=== PATIENT | female | born 1995 | race Caucasian/White ===

== ENCOUNTER → 2018-11-08 21:01 | Observation (INO) ==
[2018-11-08 19:22] LABS: Bilirubin,Urine Negative (Negative); Blood,Urine Negative (Negative); Clarity,Urine Clear (Clear); Color,Urine Yellow (Yellow); Glucose,Urine (UA) Normal (Normal); Ketones,Urine Negative (Negative); Leukocyte Esterase,Urine Negative (Negative); Nitrite,Urine Negative (Negative); Protein,Urine Negative (Neg-Trace); Specific Gravity,Urine 1.015 (1.010-1.025); Urobilinogen,Urine Normal (Normal)
[2018-11-08 20:43] LABS: Candida DNA Not Detected (Not Detect); Gardnerella DNA DETECTED (Not Detect); Trichomonas DNA Not Detected (Not Detect)
--- NOTE | 2018-11-08 20:50 | Discharge Summary ---
Date of Encounter: 11/08/18 Time of Encounter: 20:48 - Discharge Diagnosis (1) 22 weeks gestation of Priority: Primary Status: Acute Comments: Follow up with seed production field supervisor on Wednesday Call office tomorrow to confirm appointment Discharge home (2) Bacterial vaginosis Priority: Secondary Status: Acute Comments: Metronidazole 500mg BID x 7 days - Discharge Medications Prescriptions: New metroNIDAZOLE [Metronidazole] 500 mg PO BID #14 tablet Continue Pnv No.95/Ferrous Fum/Folic AC [ Caplet] 1 each PO DAILY Home Medications: Pnv No.95/Ferrous Fum/Folic AC [ Caplet] 1 each PO DAILY 11/08/18 [History] metroNIDAZOLE [Metronidazole] 500 mg PO BID #14 tablet 11/08/18 [Rx] Allergies/Adverse Reactions: Allergy/AdvReac Type Severity Reaction Status Date / Time No Known Allergies Allergy Verified 05/29/15 10:42 Data Procedures and tests throughout hospitalization: Laboratory Tests 11/08/18 11/08/18 11/08/18 19:00 19:00 19:34 Urine Color Yellow Urine Clarity Clear Urine pH 6.0 Ur Specific [place] 1.015 Urine Protein Negative Urine Glucose (UA) Normal Urine Ketones Negative Urine Blood Negative Urine Nitrite Negative Urine Bilirubin Negative Urine Urobilinogen Normal Ur Leukocyte Esterase Negative Ur Culture Indicated? NO Ur Drug Screen Interp See Below Jael species DNA Not Detected Gardnerella DNA Probe DETECTED A Trichomonas DNA Probe Not Detected Labs on day of discharge: Labs from last 24 hours 11/08/18 11/08/18 11/08/18 19:34 19:00 19:00 Urine Color Yellow Urine Clarity Clear Urine pH 6.0 Ur Specific [place] 1.015 Urine Protein Negative Urine Glucose (UA) Normal Urine Ketones Negative Urine Blood Negative Urine Nitrite Negative Urine Bilirubin Negative Urine Urobilinogen Normal Ur Leukocyte Esterase Negative Ur Culture Indicated? 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 Mayo is a 22-year-old who presents at 22 weeks gestation with c/o cramping and vaginal discharge. She endorses good fm and denies vb. FHR 150's with moderate variability. Vaginosis panel +for BV. Pt given prescription for flaygl and sent home with follow up instructions to see Ramona Meza CNM on Wednesday. Discharged in stable condition. Time spent discussing smoking cessation with patient: 3 to 10 minutes Time Attestation: Total time spent providing and/or coordinating discharge services: Time Spent: Less than 30 minutes Exam - Constitutional General appearance IM: A&O X 3 - Respiratory Respiratory exam: Present: CTAB - Cardiovascular Cardiovascular exam IM: Present: RRR, +S1, +S2 - GI/Abdominal GI/Abdominal exam IM: normal bowel sounds, no peritoneal signs - Rectal Rectal exam: deferred - Uterine Tone: Firm - Extremities Exam Extremities exam IM: Present: normal capillary refill, normal inspection, radial pulses palpable and symmetrical - Neurological Exam Neurological exam: alert, CN II-XII intact, normal gait, oriented X3, reflexes normal, no focal deficits, strengths equal and symetr throughout - VTE Reasons for not Prescribing Prophylaxis: Treatment not Indicated - Low risk for VTE
[2018-11-08 21:31] LABS: Amphetamine Screen,Urine Negative ng/mL (Cutoff=1000); Barbiturate Screen,Urine Negative ng/mL (Cutoff=200); Benzodiazepines Screen,Urine Negative ng/mL (Cutoff=200); Cannabinoid Screen,Urine Negative ng/mL (Cutoff = 50); Cocaine Screen,Urine Negative ng/mL (Cutoff= 300); Opiate Screen,Urine Negative ng/mL (Cutoff=300); Phencyclidine Screen,Urine Negative ng/mL (Cutoff=25)
== END | disposition home or self-care (01) ==
LOC: 1NENULAB
PROVIDERS: ADMIT Advanced Practice Midwife; ATTEND Advanced Practice Midwife

== ENCOUNTER 2019-03-17 08:15 | Inpatient (IN) ==
[2019-03-17] MEDS ORDERED: Metoclopramide 10 MG/2 ML VIAL IVP PRN (09:16)
[2019-03-17] MEDS ORDERED: *HR* Nalbuphine 10 MG/ML AMPUL IVP PRN (09:16)
[2019-03-17] MEDS ORDERED: Naloxone 0.4 MG/ML INJ IVP PRN (09:16)
[2019-03-17] MEDS ORDERED: Famotidine 20 MG/2 ML VIAL IVP PRN (09:16)
[2019-03-17] MEDS ORDERED: Ringers Solution, Lactated 1,000 ML IVC SCH (09:30)
[2019-03-17] MEDS ORDERED: miSOPROStol 25 MCG TABLET PO ONE (09:30)
[2019-03-17 09:37] LABS: Basophils % 0.3 %; Eosinophils # 0.1 K/mcL (0.0-0.6); Eosinophils % 1.6 %; Immature Granulocytes % 0.6 % (0-4); Lymphocytes # 1.6 K/mcL (0.6-4.6); Lymphocytes % 17.6 %; Mean Corpuscular HGB Conc 32.4 g/dL (31.6-35.5); Mean Corpuscular Hemoglobin 28.6 pg (28.0-33.3); Mean Corpuscular Volume 88.3 fL (83.0-100.0); Mean Platelet Volume 9.9 fL (9.4-12.4); Monocytes # 0.5 K/mcL (0.0-1.3); Monocytes % 5.7 %; Neutrophils # 6.6 K/mcL (1.6-8.9); Platelet Count 244 K/mcL (140-400); Red Blood Count 4.19 M/mcL (3.82-4.97); Red Cell Distribution Width 13.3 % (11.5-14.5); Segmented Neutrophils % 74.2 %; White Blood Count 8.8 K/mcL (4.3-11.1)
[2019-03-17 09:41] LABS: Amphetamine Screen,Urine Negative ng/mL (Cutoff=1000); Barbiturate Screen,Urine Negative ng/mL (Cutoff=200)
[2019-03-17 09:43] LABS: Benzodiazepines Screen,Urine Negative ng/mL (Cutoff=300); Cannabinoid Screen,Urine Negative ng/mL (Cutoff = 50); Cocaine Screen,Urine Negative ng/mL (Cutoff= 300); Opiate Screen,Urine Negative ng/mL (Cutoff=300); Phencyclidine Screen,Urine Negative ng/mL (Cutoff=25)
[2019-03-17] MEDS ORDERED: Acetaminophen 325 MG TABLET PO ONE (10:27)
[2019-03-17] MEDS ORDERED: Epidural Premix (fent/bupiv) 110 ML EP SCH (12:15)
--- NOTE | 2019-03-17 12:21 | Anesthesia Evaluation PreOp ---
Date of Encounter: 03/17/19 Time of Encounter: 12:16 - Past History Planned Operation: [place] Cardiac History: Denies any Significant Hx Pulmonary History: Denies Any Significant HX ADVERTISING CONSULTANT History: Denies Any Significant HX Other Medical History: Other (Scoliosis) Anesthesia History: No Prior Anesthetic Complications (No prior anesthetics) : Yes (40.3) Alcohol Use: none Drug use: none Medications and Allergies Pnv No.95/Ferrous Fum/Folic AC [ Caplet] 1 each PO DAILY 11/08/18 [History] metroNIDAZOLE [Metronidazole] 500 mg PO BID #14 tablet 11/08/18 [Rx] Allergy/AdvReac Type Severity Reaction Status Date / Time No Known Allergies Allergy Verified 05/29/15 10:42 - Meds/Allergy Pre-op Review Medications Reviewed: Yes Allergies Reviewed: Yes Beta Blockers on Current Med List: No Anesthesia Results - Labs 03/17/19 08:39 Anesthesia Exam O2 Sat Height 1.52 m Weight 66 kg NPO (# of Hours): 4 Pain Scale: 5 Pain Scale Used: Numeric (1 - 10) - HEENT Pupil (Motor): Pupils equal Mallampati: II Teeth: Normal Oral Opening: Greater than 3 - ADVERTISING CONSULTANT LOC: Oriented ADVERTISING CONSULTANT Motor: Normal RUE, Normal LUE, Normal RLE, Normal LLE, Normal Face ADVERTISING CONSULTANT Sensory: Normal: RUE, LUE, RLE, LLE, Face - Cardiac Rhythm: Regular Murmur: None JVD: No Carotid Bruit: No - Pulmonary Breath Sounds: bilateral Clear Respiratory Effort: Symmetrical Anesthesia Assess/Plan ASA Score: 2 Level of consciousness: Cooperative, Oriented Anesthetic Plan: General, Epidural Autologous Blood: Yes Monitoring Plan: Standard Monitors Recovery Plan: PACU
--- NOTE | 2019-03-17 13:21 | OB/GYN History & Physical ---
Date of Encounter: 03/17/19 Time of Encounter: 13:13 Assessment and Plan (1) 40 weeks gestation of Current visit: Yes Status: Acute (2) Elective induction of labor planned Current visit: Yes Status: Acute Admitted to labor and delivery Cytotec by mouth Cervical Parada was placed without incident Nubain and epidural as desired Frequent repositioning May use able ambulatory monitor Anticipate Dr. Martínez made aware of induction of labor plan of care (3) Anxiety during in third trimester, antepartum Current visit: Yes Status: Acute History of Present Illness Chief complaint: Induction of labor HPI: Ms. Mckenzie is a 23 year old female 40+3 weeks gestation presents to triage for induction of labor secondary to post dates . Patient reports good movement, denies vaginal bleeding or leaking of fluid. care with nurse midwives after transfer care. course, complicated by anxiety was prescribed Klonopin, taking her prescription. Labs: O-, rubella immune, GBS negative, all other serologies negative Past Med Surg Social Fam HX - Past Medical History Medical history: no medical history Psychiatric history: anxiety - Past Surgical History Surgical History: other Additional surgical history: colposcopy, surgery on l. arm - Social History Smoking Status: Former smoker Smokeless Tobacco Status: No Alcohol use: none Drug use: none - Family History Mother History Unknown: Yes Living Status: Still Living Hx Family Cardiac Disorders: No Hx Family Respiratory Disorders: No Hx Family Cancer: No Hx Family GI Disorders: No Hx Family Genitourinary Disorders: No Hx Family Endocrine Disorder: No Hx Family Musculoskeletal Disorders: No Hx Family Neuromuscular Disorders: No Hx Family Neurologic Disorders: No Hx Family HEENT Disorders: No Hx Family Autoimmune Disorders: No Hx Family Reproductive Disorders: No Hx Family Psychosocial Disorders: No Hx Family Medical Disorders: No Obstetrical History - Pregnancies : 2 Para: 0 Term: 0 : 0 Ab's: 1 Livin Medications and Allergies Pnv No.95/Ferrous Fum/Folic AC [ Caplet] 1 each PO DAILY 11/08/18 [History] metroNIDAZOLE [Metronidazole] 500 mg PO BID #14 tablet 11/08/18 [Rx] Allergy/AdvReac Type Severity Reaction Status Date / Time No Known Allergies Allergy Verified 05/29/15 10:42 Exam - Constitutional Constitutional: well developed, well nourished, no acute distress, average body habitus - Neck Neck exam: full ROM - Lungs Respiratory exam: CTAB - Cardiovascular Cardiovascular exam: RRR - Abdomen Abdomen: Present: gravid, non tender - Extremities Extremities exam: normal capillary refill, normal inspection Results Result Diagrams: 03/17/19 08:39 All other labs normal. - VTE Reasons for not Prescribing Prophylaxis: Treatment not Indicated - Low risk for VTE
[2019-03-17] MEDS ORDERED: Oxytocin 20 units/ LR 1000 mL 20 UNIT/1,000 ML BAG IVC SCH (15:00)
--- NOTE | 2019-03-17 15:48 | OB Labor Progress Note ---
Date of Encounter: 03/17/19 Time of Encounter: 15:46 Labor Progress Note - Subjective Subjective: pt using nuabin for pain management - Cervix Cervix: cervical quintana remains in place - Heart Tones Heart Tones: 115/moderate/+accels/-decels - [place]: 2-5 - Plan Physician notified: No Plan: Start pitocin per policy epidural as desired encourage frequent positioning Anticipate
--- NOTE | 2019-03-17 17:11 | Anesthesia Procedures ---
Date of Encounter: 03/17/19 Time of Encounter: 17:09 Procedures: Anesthesia - Epidural/Spinal Patient ID/Chart reviewed: Yes Patient examined: Yes OB Eval: Gestational age: 40.3 OB Eval: : 2 OB Eval: Hx Para: 0 OB Eval: Dilated at (cm): 4 OB Eval: Contractions: Non-stressed pattern Consent Obtained: Yes Supplemental Oxygen: None/Room Air Site Prep: Aseptic Technique, Sterile prep and drape, Povidone-Iodine 1% Patient position: upright Local Anesthetic: Lidocaine 1% Amount of Local Anesthetic used: 3 Touhy Needle Gauge: 18 Touhy Needle Depth (cm): 7 Catheter Depth at Skin (cm): 19 Test Dose (1.5% Lido + Epi): Volume given (mls): 5 Test Dose Result: Negative Loading Dose: Other: 10mls of epidural pharm bag premix Loading Dose Administered: Thru Catheter Infusion Med: 0.125% Bupivacaine w/ 2 mcg/ml Fentanyl Infusion Rate (mls/hr): 12 ([id number]) Catheter Secured in Place: Tegaderm, Tape Interspace Used: L4-L5 Loss of Resistance (JOSE): Yes Blood: No CSF: No Paresthesia: Yes (transient with catheter insertion) Spinal Needle Gauge: 25 (Sprotte for dural puncture) Procedure: pt tolerated procedure well. no complications. vss. fhr stable.
--- NOTE | 2019-03-17 18:37 | OB Labor Progress Note ---
Date of Encounter: 03/17/19 Time of Encounter: 18:35 Labor Progress Note - Subjective Subjective: Comfortable with epidural - Cervix Cervix: 4/75/-2 - Heart Tones Heart Tones: 130/moderate/+accels/ variable - [place]: 1-4 - Interventions Interventions: AROM for large amount of clear fluid - Plan Plan: Pitocin per policy frequent repositioning anticipate
[2019-03-17] MEDS ORDERED: *HR* FentaNYL (PF) 100 MCG/2 ML VIAL ONE (22:00)
[2019-03-17] MEDS ORDERED: Ropivacaine/PF 0.2% 20 ML VIAL ONE (22:01)
--- NOTE | 2019-03-17 22:09 | Anesthesia Progress Note ---
Date of Encounter: 03/17/19 Time of Encounter: 22:07 Anesthesia Note - Note Note: 03/17/19 22:07 called for increased pain during contractions 06/29. bolus given of 7ml of 0.2% ropivacaine with 100mcg fentanyl after negative aspiration. vss. fhr stable. gtt increased to 16ml/hr.
[2019-03-17] MEDS ORDERED: Ondansetron 4 MG/2 ML VIAL ONE (22:57)
--- NOTE | 2019-03-17 23:36 | OB Labor Progress Note ---
Date of Encounter: 03/18/19 Time of Encounter: 23:33 Labor Progress Note - Subjective Subjective: Pt feeling contractions despite epidural - Vital Signs Vital Signs: 133/79 99.1 oral - Cervix Cervix: 5/80/-2 - Heart Tones Heart Tones: 155/moderate/+accels/variables - [place]: 1-3 - Plan Plan: Give 1mg klonopin continue pitocin per policy IV fluid bolus anticipate discussed klonopin with Dr. Lopez
[2019-03-17] MEDS ORDERED: clonazePAM 1 MG TABLET PO PRN (23:40)
--- NOTE | 2019-03-18 01:18 | OB Labor Progress Note ---
Date of Encounter: 03/18/19 Time of Encounter: 01:14 Labor Progress Note - Subjective Subjective: currently comfortable with epidural after long period of poor pain management and severe anxiety and panic attacks - Cervix Cervix: 5-6/80/-2 - Heart Tones Heart Tones: 155/moderate/+accels/variable and early - [place]: 1-3 - Interventions Interventions: Quintana removed - Plan Plan: Continue pitocin per policy St. cath at least every 2 hours do not replace quintana frequent repostionong. anticipate
[2019-03-18] MEDS ORDERED: Acetaminophen 325 MG TABLET PO ONE (01:57)
[2019-03-18] MEDS ORDERED: Ampicillin 2 GM in 0.9 % Sodium Chloride Mini Bag 100 ML IVPB SCH ×2 (02:00→14:00)
--- NOTE | 2019-03-18 02:03 | OB Labor Progress Note ---
Date of Encounter: 03/18/19 Time of Encounter: 02:01 Labor Progress Note - Subjective Subjective: Pt remains comfortable with epidural - Vital Signs Vital Signs: 109/65 94 101.0F - Cervix Cervix: 7/80/-2 per RN - Heart Tones Heart Tones: 160/moderate/-accels/variable, early and 1 prolonged - [place]: 1-4 - Plan Plan: Continue pitocin as per policy Start ampicillin every 6 hours and gentamicin q24 Frequent repositioning Straight catheter every 2 hours Anticipate
[2019-03-18] MEDS ORDERED: Gentamicin 270 MG in 0.9 % Sodium Chloride 100 ML IVPB SCH (02:30)
[2019-03-18] MEDS ORDERED: Ibuprofen 600 MG TABLET PO PRN ×2 (06:23→06:29)
[2019-03-18] MEDS ORDERED: Rho Immune Globulin 1,500 UNIT SYRINGE IM PRN ×2 (06:23→08:43)
[2019-03-18] MEDS ORDERED: Acetaminophen 325 MG TABLET PO PRN ×2 (06:23→08:43)
[2019-03-18] MEDS ORDERED: Benzocaine/Menthol 56 GM AEROSOL SPRAY TP PRN ×2 (06:23→08:43)
[2019-03-18] MEDS ORDERED: Lanolin 7 G OINT...G. TP PRN ×2 (06:23→08:43)
--- NOTE | 2019-03-18 06:23 | OB/GYN Procedure Note ---
Delivery - Delivery Date: 03/18/19 Provider: Jaimie Sandoval Intrapartum events: febrile- temp >100.3 Delivery induction: AROM, oxytocin, quintana, misoprostol Delivery monitor: external FHT, external uterine Anesthesia: epidural Quantitated Blood Loss: 150 - Infant (s) Infant A Infant Delivery Date: 03/18/19 Infant Delivery Time: 05:50 Presentation: vertex Position: OA Route of delivery: Gender: Female Viability: Viable at 1 minute: 8 at 5 mins: 9 Shoulder Dystocia: not encountered Specimens collected: cord blood Placenta: spontaneous - Repair Episiotomy: none Laceration Description: Labial - Complications Delivery complications: none Delivery comments: Induction of labor with Cytotec, cervical Quintana and Pitocin. Progressed to complete. Maternal bearing down efforts to of liveborn female. Vertex delivered OA, body and shoulders easily followed. No nuchal cord or shoulder dystocia encountered. Vigorous infant placed on maternal abdomen for drying and stimulation. Apgars 8/9. Placenta delivered spontaneously ([place]) complete and intact upon inspection. Fundus massaged until firm and Pitocin started per policy. Left labial laceration repaired with 4-0 Monocryl. EBL 150. Mother and left bonding skin to skin - Disposition Mom disposition: stable in LDR disposition: stable in LDR
[2019-03-18] MEDS ORDERED: Oxytocin 20 units/ LR 1000 mL 20 UNIT/1,000 ML BAG IVC SCH ×2 (06:30→08:43)
[2019-03-18] MEDS ORDERED: clonazePAM 1 MG TABLET PO PRN (08:43)
[2019-03-18] MEDS ORDERED: Prenatal Vit/FA 1 EACH TABLET PO SCH ×2 (09:00)
[2019-03-18] MEDS ORDERED: Etonogestrel 68 MG IMPLANT IL ONE (09:57)
[2019-03-18] MEDS ORDERED: Lidocaine -MPF 1% 5 ML AMPUL ID ONE (09:57)
[2019-03-18] MEDS: Ampicillin 2 GM in 0.9 % Sodium Chloride Mini Bag 100 ML IVPB SCH ×2 (10:22→16:11)
[2019-03-18] MEDS: Ibuprofen 600 MG TABLET PO PRN ×2 (12:48→21:09)
[2019-03-19] MEDS: Ibuprofen 600 MG TABLET PO PRN ×2 (03:44→12:47)
[2019-03-19 08:37] VITALS: BP 118/76
--- NOTE | 2019-03-19 09:38 | Discharge Summary ---
Date of Encounter: 03/19/19 Time of Encounter: 09:31 - Discharge Diagnosis (1) Anxiety during in third trimester, antepartum Priority: Secondary Status: Acute (2) Vaginal delivery Priority: Primary Status: Acute Comments: Stable, meeting all pp milestones, pain well managed, desires discharge to guest - Discharge Medications Prescriptions: New Docusate [Colace] 100 mg PO BID #60 capsule Benzocaine/Menthol [place] [Dermoplast [place]] 1 appl TP QID PRN aerosol PRN Reason: See Comments clonazePAM [Klonopin] 1 mg PO BID PRN 30 Days #30 tablet PRN Reason: Anxiety Lanolin [Lansinoh] 1 appl TP QID PRN oint...g. PRN Reason: Ibuprofen [Motrin] 600 mg PO Q6HR PRN #60 tablet PRN Reason: Cramping Calcium Carbonate [Tums] 1,000 mg PO Q4HR PRN tab.chew PRN Reason: Heartburn Acetaminophen [Tylenol] 650 mg PO Q6HR PRN tablet PRN Reason: Mild Pain Continued Pnv No.95/Ferrous Fum/Folic AC [ Caplet] 1 each PO DAILY Discontinued metroNIDAZOLE [Metronidazole] 500 mg PO BID #14 tablet Home Medications: Pnv No.95/Ferrous Fum/Folic AC [ Caplet] 1 each PO DAILY 11/08/18 [History] Acetaminophen [Tylenol] 650 mg PO Q6HR PRN tablet 03/19/19 [Rx] Benzocaine/Menthol [place] [Dermoplast [place]] 1 appl TP QID PRN aerosol 03/19/19 [Rx] Calcium Carbonate [Tums] 1,000 mg PO Q4HR PRN tab.chew 03/19/19 [Rx] Docusate [Colace] 100 mg PO BID #60 capsule 03/19/19 [Rx] Ibuprofen [Motrin] 600 mg PO Q6HR PRN #60 tablet 03/19/19 [Rx] Lanolin [Lansinoh] 1 appl TP QID PRN oint...g. 03/19/19 [Rx] clonazePAM [Klonopin] 1 mg PO BID PRN 30 Days #30 tablet 03/19/19 [Rx] Allergies/Adverse Reactions: Allergy/AdvReac Type Severity Reaction Status Date / Time No Known Allergies Allergy Verified 05/29/15 10:42 Data Procedures and tests throughout hospitalization: Laboratory Tests 03/17/19 03/17/19 03/18/19 08:39 08:39 06:25 WBC 8.8 RBC 4.19 Hgb 12.0 Hct 37.0 MCV 88.3 MCH 28.6 MCHC 32.4 RDW 13.3 Plt Count 244 MPV 9.9 Immature Gran % 0.6 Seg Neutrophils % 74.2 Lymphocytes % 17.6 Monocytes % 5.7 Eosinophils % 1.6 Basophils % 0.3 Neutrophils # 6.6 Lymphocytes # 1.6 Monocytes # 0.5 Eosinophils # 0.1 Basophils # 0.0 Urine Opiates Screen Negative Ur Buprenorphine Scrn Negative Ur Barbiturates Screen Negative Ur Phencyclidine Scrn Negative Ur Amphetamines Screen Negative U Benzodiazepines Scrn Negative Urine Cocaine Screen Negative U Marijuana (THC) Screen Negative Ur Drug Screen Interp See Below Baby's Blood Type O RH NEGATIVE Mother's Blood Type O RH NEGATIVE Rhogam Indicated NO Labs on day of discharge: Labs from last 24 hours 03/18/19 06:25 Baby's Blood Type O RH NEGATIVE Mother's Blood Type O RH NEGATIVE Rhogam Indicated NO Date of admission: 03/17/19 08:15 Primary care physician: Mike Naidu Jr, MD Consults: 03/18/19 06:23 Consult to Environmental Safety Specialist [CONS] Routine Comment: Vaginal delivery, consult needed Discharging clinician: Jaimie Sandoval Anticipated date of discharge: 03/19/19 - Patient Status Disposition: Home, Self-Care Condition: Good Functional capacity at discharge: independent ambulation Overall status at discharge: patient is progressing back to baseline - Discharge Instructions Follow Up With: Mike Naidu Jr, MD [Primary Care Provider] - Jaimie Sandoval CNM [Advanced Practice Nurse] - - Diet and Activity Activity: resume usual activities as tolerated Diet: regular diet Hospital Course Reason for admission: induction of labor, IUP at term Delivery: Episiotomy: none Laceration: other Other procedures: none complications: none Discharge diagnosis: IUP at term delivered [place] baby: female Hospital course: Delivery - Delivery Date: 03/18/19 Provider: Jaimie Sandoval Intrapartum events: febrile- temp >100.3 Delivery induction: AROM, oxytocin, quintana, misoprostol Delivery monitor: external FHT, external uterine Anesthesia: epidural Quantitated Blood Loss: 150 - Infant (s) A Delivery Date: 03/18/19 Infant Delivery Time: 05:50 Presentation: vertex Position: OA Route of delivery: Gender: Female Viability: Viable at 1 minute: 8 at 5 mins: 9 Shoulder Dystocia: not encountered Specimens collected: cord blood Placenta: spontaneous - Repair Episiotomy: none Laceration Description: Labial - Complications Delivery complications: none Delivery comments: Induction of labor with Cytotec, cervical Quintana and Pitocin. Progressed to complete. Maternal bearing down efforts to of liveborn female. Vertex delivered OA, body and shoulders easily followed. No nuchal cord or shoulder dystocia encountered. Vigorous placed on maternal abdomen for drying and stimulation. Apgars 8/9. Placenta delivered spontaneously (Vi) complete and intact upon inspection. Fundus massaged until firm and Pitocin started per policy. Left labial laceration repaired with 4-0 Monocryl. EBL 150. Mother and infant left bonding skin to skin - Disposition Mom disposition: stable in PP and appropriate for dischARGE. oarrs reviewed Time Attestation: Total time spent providing and/or coordinating discharge services: Time Spent: Less than 30 minutes Exam - Constitutional Vitals: Temp Pulse Resp BP Pulse Ox 98.6 F 86 16 118/76 98 03/19/19 08:37 03/19/19 08:37 03/19/19 08:37 03/19/19 08:37 03/19/19 08:37 General appearance IM: A&O X 3 - Respiratory Respiratory exam: Present: CTAB - Cardiovascular Cardiovascular exam IM: Present: RRR - GI/Abdominal GI/Abdominal exam IM: soft - Uterine Tone: Firm Uterus Position: 1 Finger Above Umbilicus - Extremities Exam Extremities exam IM: Present: normal capillary refill, normal inspection - Neurological Exam Neurological exam: normal gait, oriented X3 - Psychiatric Additional comments: Pt states good mood, but still having anxiety and panic feelings.
== END 2019-03-19 14:23 | disposition home or self-care (01) | DRG 560 ==
LOC: 1NENULAB 08:15 → 1NENUOBS 03-18 08:27
PROVIDERS: ADMIT Advanced Practice Midwife; ATTEND Advanced Practice Midwife

== ENCOUNTER → 2022-05-31 13:50 | Observation (INO) ==
[2022-05-31 13:10] LABS: Bilirubin,Urine Negative (Negative); Blood,Urine Negative (Negative); Clarity,Urine Clear (Clear); Color,Urine Light-Yellow (Yellow); Glucose,Urine (UA) Normal (Normal); Ketones,Urine Negative (Negative); Leukocyte Esterase,Urine Negative (Negative); Nitrite,Urine Negative (Negative); Protein,Urine Negative (Neg-Trace); Urobilinogen,Urine Normal (Normal)
== END | disposition home or self-care (01) ==
LOC: 1NENULAB
PROVIDERS: ADMIT Advanced Practice Midwife; ATTEND Advanced Practice Midwife

== ENCOUNTER → 2022-06-09 15:30 | Observation (INO) ==
[2022-06-09 13:25] LABS: Bacteria,Urine Few per hpf (None-Few); Bilirubin,Urine Negative (Negative); Blood,Urine Negative (Negative); Clarity,Urine Turbid (Clear); Color,Urine Yellow (Yellow); Glucose,Urine (UA) Normal (Normal); Ketones,Urine >150 mg/dL (Negative); Leukocyte Esterase,Urine Small (Negative); Mucus,Urine Few per lpf (None-Few); Nitrite,Urine Negative (Negative); PH,Urine 5.5 pH Units (5.0-8.0); Protein,Urine 50 mg/dL (Neg-Trace); RBC,Urine 0-3 per hpf (0-3); Specific Gravity,Urine 1.028 (1.010-1.025); Squamous Epithelial Cell,Urine Many per hpf (None-Few); Urobilinogen,Urine Normal (Normal)
== END | disposition home or self-care (01) ==
LOC: 1NENULAB
PROVIDERS: ADMIT Registered Nurse; ATTEND Registered Nurse

== ENCOUNTER 2022-07-10 12:19 | Inpatient (IN) ==
[~2022-07-10 12:19] MED LIST: *HR* Nalbuphine 10 MG/ML AMPUL IV PRN; Azithromycin 500 MG in 0.9 % Sodium Chloride 250 ML IVPB PRN; Famotidine 20 MG/2 ML VIAL IVP PRN; Metoclopramide 10 MG/2 ML VIAL IVP PRN; Naloxone 0.4 MG/ML INJ IVP PRN; Ondansetron 4 MG/2 ML VIAL IVP PRN
[2022-07-10] MEDS ORDERED: Ringers Solution, Lactated 1,000 ML IVC SCH (12:30)
[2022-07-10 13:09] LABS: Basophils % 0.4 %; Eosinophils # 0.1 K/mcL (0.0-0.6); Eosinophils % 1.5 %; Hematocrit 30.5 % (35.3-44.9); Hemoglobin 9.7 g/dL (11.5-15.4); Immature Granulocytes % 0.3 % (0-4); Lymphocytes # 1.3 K/mcL (0.6-4.6); Lymphocytes % 19.6 %; Mean Corpuscular HGB Conc 31.8 g/dL (31.6-35.5); Mean Corpuscular Hemoglobin 23.8 pg (28.0-33.3); Mean Corpuscular Volume 74.9 fL (83.0-100.0); Mean Platelet Volume 10.4 fL (9.4-12.4); Monocytes # 0.6 K/mcL (0.0-1.3); Monocytes % 8.2 %; Neutrophils # 4.7 K/mcL (1.6-8.9); Platelet Count 233 K/mcL (140-400); Red Blood Count 4.07 M/mcL (3.82-4.97); Red Cell Distribution Width 14.3 % (11.5-14.5); White Blood Count 6.7 K/mcL (4.3-11.1)
[2022-07-10 13:18] LABS: Amphetamine Screen,Urine Negative ng/mL (Cutoff=1000); Barbiturate Screen,Urine Negative ng/mL (Cutoff=200); Benzodiazepines Screen,Urine Negative ng/mL (Cutoff=200); Cannabinoid Screen,Urine Positive ng/mL (Cutoff = 50); Cocaine Screen,Urine Negative ng/mL (Cutoff= 300); Opiate Screen,Urine Negative ng/mL (Cutoff=300); Phencyclidine Screen,Urine Negative ng/mL (Cutoff=25)
[2022-07-10] MEDS ORDERED: miSOPROStoL 25 MCG TABLET PO ONE (13:57)
[2022-07-10] MEDS ORDERED: EPHEDrine sulfate 50 MG/10 ML VIAL IVP PRN (14:05)
[2022-07-10] MEDS ORDERED: Naloxone 0.4 MG/ML INJ IVP PRN (14:05)
[2022-07-10] MEDS ORDERED: Bupivacaine-MPF 0.25% 10 ML VIAL EP ONE (14:05)
[2022-07-10] MEDS ORDERED: Ondansetron 4 MG/2 ML VIAL IVP PRN (14:05)
[2022-07-10] MEDS ORDERED: Ropivacaine/PF 0.2% 20 ML VIAL EP ONE (14:05)
[2022-07-10] MEDS ORDERED: Epidural Premix (fent/bupiv) 110 ML EP SCH (14:15)
[2022-07-10] MEDS ORDERED: Oxytocin 30 UNIT/503 ML BAG IVC SCH (17:45)
[2022-07-10] MEDS ORDERED: Ropivacaine/PF 0.2% 20 ML VIAL ONE (20:17)
[2022-07-11] MEDS ORDERED: clonazePAM 1 MG TABLET PO ONE (01:22)
[2022-07-11] MEDS ORDERED: Oxytocin 30 UNIT/503 ML BAG IVC SCH (05:58)
[2022-07-11] MEDS ORDERED: Rho Immune Globulin 1,500 UNIT SYRINGE IM PRN (05:58)
[2022-07-11] MEDS ORDERED: Benzocaine/Menthol 56 GM AEROSOL SPRAY TP PRN (05:58)
[2022-07-11] MEDS ORDERED: Lanolin 7 G OINT...G. TP PRN (05:58)
[2022-07-11] MEDS ORDERED: Ondansetron ODT 4 MG TAB.RAPDIS SL PRN (06:00)
[2022-07-11] MEDS: Ibuprofen 600 MG TABLET PO SCH ×2 (06:21→16:58)
[2022-07-11] MEDS: *HR* Buprenorphine HCl 8 MG TAB.SUBL SL SCH (08:13)
[2022-07-11] MEDS: Prenatal Vit/FA 1 EACH TABLET PO SCH (08:14)
[2022-07-11] MEDS: clonazePAM 1 MG TABLET PO SCH ×2 (08:14→21:18)
[2022-07-11] MEDS: Acetaminophen 325 MG TABLET PO SCH ×2 (09:08→16:57)
[2022-07-12] MEDS: Acetaminophen 325 MG TABLET PO SCH ×2 (00:04→09:40)
[2022-07-12] MEDS: Ibuprofen 600 MG TABLET PO SCH ×2 (00:05→09:40)
[2022-07-12 03:34] LABS: Basophils # 0.1 K/mcL (0.0-0.2); Basophils % 0.5 %; Eosinophils # 0.5 K/mcL (0.0-0.6); Eosinophils % 3.4 %; Hematocrit 26.6 % (35.3-44.9); Hemoglobin 8.6 g/dL (11.5-15.4); Immature Granulocytes % 0.3 % (0-4); Lymphocytes # 3.2 K/mcL (0.6-4.6); Lymphocytes % 23.9 %; Mean Corpuscular HGB Conc 32.3 g/dL (31.6-35.5); Mean Corpuscular Hemoglobin 24.5 pg (28.0-33.3); Mean Corpuscular Volume 75.8 fL (83.0-100.0); Mean Platelet Volume 10.4 fL (9.4-12.4); Monocytes # 0.9 K/mcL (0.0-1.3); Monocytes % 6.6 %; Neutrophils # 8.6 K/mcL (1.6-8.9); Platelet Count 199 K/mcL (140-400); Red Blood Count 3.51 M/mcL (3.82-4.97); Red Cell Distribution Width 14.6 % (11.5-14.5); Segmented Neutrophils % 65.3 %
[2022-07-12 03:36] LABS: White Blood Count 13.2 K/mcL (4.3-11.1)
[2022-07-12] MEDS: Prenatal Vit/FA 1 EACH TABLET PO SCH (09:39)
[2022-07-12] MEDS: clonazePAM 1 MG TABLET PO SCH (09:40)
[2022-07-12] MEDS: *HR* Buprenorphine HCl 8 MG TAB.SUBL SL SCH (09:40)
[2022-07-12 12:31] VITALS: BP 107/68; PULSE 89; TEMP 98.5; O2SAT 99
== END 2022-07-12 14:50 | disposition home or self-care (01) | DRG 560 ==
LOC: 1NENULAB → 1NENUOBS 07-11 06:00
PROVIDERS: ADMIT Obstetrics & Gynecology; ATTEND Obstetrics & Gynecology